=== PATIENT | female | born 1985 | race Caucasian/White ===

== ENCOUNTER 2020-02-12 05:52 | Emergency (ER) | payer MEDICAID, SELFPAY ==
[2020-02-12 05:53] VITALS: BP 142/89; PULSE 89; RESP 16; TEMP 36.1; O2SAT 97; BMI 28.2
[2020-02-12 06:15] LABS: Absolute Lymphocyte Count 0.94 X10^3/uL (0.83-4.51); Absolute Neutrophil Count 6.6 X10^3/uL (2.0-7.7); Basophil# 0.02 X10^3/uL; Basophil% 0.2 % (0-1); Eosinophil# 0.08 X10^3/uL; Hematocrit 42.1 % (37-47); Lymphocyte # 0.94 X10^3/ul (4.0); Lymphocyte % 11.3 % (19-41); Mean Corp Hgb Conc 33.3 g/dL (32-36); Mean Corpuscular Hgb 32.2 pg (27.0-32.0); Mean Corpuscular Volume 96.8 fL (81-99); Mean Platelet Vol. 9.3 fl (6.2-12.0); Monocyte# 0.71 X10^3/uL; Monocyte% 8.5 % (0-10); NRBC Flagged by Analyzer 0 % (0-5); Neutrophil # 6.55 X10^3/uL (2.7-7.7); Neutrophil % 78.6 % (47-70); Platelet Count 220 K/mm3 (150-450); RBC Distribution Width CV 12.2 % (11.6-14.6); RBC Distribution Width SD 43.8 fl (35.1-43.9); Red Blood Count 4.35 M/mm3 (4.2-5.4); White Blood Count 8.3 K/mm3 (4.4-11.0)
[2020-02-12] MEDS: Morphine 4 MG/ML Syringe IV (06:17)
[2020-02-12] MEDS: 0.9% Normal Saline 1,000 ML 1000 ML IV (06:17)
--- NOTE | 2020-02-12 06:22 | ED.VIS.GEN ---
History of Present Illness Chief Complaint: Abd Pain Informant: Patient Onset: Days - 2 Narrative: Patient presents with persistent upper abdominal pain for the past 2 days after awakening. Denies nausea or vomiting. States had a bowel movement was normal 2 days ago prior to symptoms starting. No urinary symptoms. History of IUD. No abdominal surgeries. Patient was seen at [facility] in ED yesterday morning with a work-up. She states she had gallbladder ultrasound and CT scan of abdomen that were negative. She is sent home on Prilosec. She states she is given GI cocktail and Toradol with no relief. She states yesterday a little bit of food did mildly worsen symptoms. She states she called her PCP yesterday's told likely ulcer. She denies any melena. Was able to review patient's records along with her bring paperwork with image studies. Gallbladder ultrasound was normal CT scan abdomen pelvis IV contrast normal appendix, there is noted mild right ovarian cyst. Patient denies any pain in the lower abdomen. Patient returns for evaluation states she is concerned of pancreatitis due to looking up her symptoms. She admits to drinking alcohol on the weekends and sometimes an extra day of the week. She did have a normal lipase. Prior similar symptoms: No Past Medical History - Allergies and Home Meds Allergies/Adverse Reactions: Allergies oxycodone HCl [From Percocet] Allergy (Verified 02/12/20 05:56) Anaphylaxis Primary Care Physician: Alcides Aldrich DO [Primary Care Provider] - Past Medical History: None Smoking Status: Never smoker Review of Systems General: Denies: Chills, Fever, Sweats Eyes: Denies: Visual changes - bilaterally, Diplopia ENT: Denies: Rhinorrhea, Sore throat Cardiovascular: Denies: Chest pain, Palpitations Respiratory: Denies: Dyspnea, Cough, Dyspnea on exertion Gastrointestinal: Reports: Abdominal pain. Denies: Nausea, Vomiting, Diarrhea, Melena, Hematochezia Genitourinary: Denies: Dysuria, Hematuria, Frequency Musculoskeletal: Denies: Back pain, Extremity Pain Skin: Denies: Rash, Wounds Neurological: Denies: Headache, Weakness, Numbness Physical Exam Vital Signs/Narrative: Vital Signs Temp Pulse Resp BP Pulse Ox 02/12/20 05:53 97 F L 89 16 142/89 H 97 Inital Vital Signs reviewed: Yes General: Well nourished, Well developed, No Acute Distress Head: Normocephalic, Atraumatic Eyes: Perrl, EOMI ENT: Moist mucous membranes, No rhinorrhea Neck: Supple, Nontender Cardiovascular: Regular rate, Regular rhythm, No murmurs Respiratory: No distress, CTA bilaterally, Chest nontender Abdomen: Soft, Nondistended, Normal bowel sounds, Tender, - - Tender in epigastric region. Negative McBurney's tenderness. No pelvic tenderness. No rebound or guarding.. Negative for: Munson's sign Back: Nontender, Normal Inspection Extremities: Nontender, No edema Skin: Normal color, No rash Neurological: Alert, Oriented x3, Cranial nerves II-XII grossly intact, Normal Strength, Normal Sensation Psychological: Normal affect, Normal Mood Diagnostic/Tx/Re-eval Abnormal Lab Results 02/12/20 02/12/20 02/12/20 06:02 06:02 06:02 WBC 8.3 RBC 4.35 Hgb 14.0 Hct 42.1 MCV 96.8 MCH 32.2 H MCHC 33.3 RDW Std Deviation 43.8 RDW Coeff of Shadia 12.2 Plt Count 220 MPV 9.3 Immature Gran % (Auto) 0.400 Neut % (Auto) 78.6 H Lymph % (Auto) 11.3 L Antelope % (Auto) 8.5 Eos % (Auto) 1.0 Baso % (Auto) 0.2 Absolute Neuts (auto) 6.6 Absolute Lymphs (auto) 0.94 Nucleated RBC % 0 Sodium 138 Potassium 3.8 Chloride 106 Carbon Dioxide 27.0 Anion Gap 5 BUN 9 Creatinine 0.74 Estim Creat Clear Calc 110.89 Est GFR (MDRD) Af Amer 115 Est GFR (MDRD) Non-Af 95 BUN/Creatinine Ratio 12.2 Glucose 112 H Calcium 8.6 Total Bilirubin 0.90 AST 14 L ALT 18 Alkaline Phosphatase 90 Total Protein 7.6 Albumin 3.5 Globulin 4.1 Albumin/Globulin Ratio 0.9 Lipase 93 Serum , Qual NEGATIVE - Medical Decision Making Patient tender epigastric region. She reported that the GI cocktail did not help at the other facility. She given 1 dose of morphine. Abdominal labs obtained which was normal. She has had a CT scan with IV contrast along with gallbladder ultrasound less than 24 hours ago. Results reviewed and showed no acute process causing patient's symptoms. Currently on Protonix and Prilosec per patient. Her lipase was normal. She will be placed on additional Carafate to try to help with symptoms and close follow-up with her PCP. Do not feel additional images are necessary at this time. Patient may need referral as an outpatient. All questions were answered. ED Disposition - Plan for ED Patient: Disposition: Home or Assisted Living Diagnosis: Gastritis Instructions: ED PEPTIC ULCER vs GASTRITIS Prescriptions: Sucralfate [Carafate] 1 gm PO 4X/DAY #60 tablet traMADol [Ultram] 50 mg PO Q4H PRN PRN 3 Days #10 tablet PRN Reason: Pain Transmission Status: Sent to [facility] Referrals: Alcides Aldrich DO [Primary Care Provider] - 2 Days
[2020-02-12 06:34] LABS: ALB/GLOB Ratio 0.9 RATIO (0.9-2.4); AST(SGOT) 14 U/L (15-37); Alanine Aminotransfer ALT/SGPT 18 U/L (13-56); Albumin, Serum 3.5 g/dL (3.2-5.0); Alkaline Phosphatase 90 U/L (45-117); Anion Gap 5 (5-15); BUN 9 mg/dL (7-18); BUN/Creat Ratio 12.2 RATIO (10-20); Calcium,Total 8.6 mg/dL (8.5-10.1); Chloride 106 mmol/L (98-107); Creatinine, Serum 0.74 mg/dL (0.55-1.02); EST Glomerular Filtration Rate 95 mL/min (>60); Est Glom Filt Rate - Afr Amer 115 mL/min (>60); Estimated Creatinine Clearance 110.89 ml/min; Globulin 4.1 g/dL (2.2-4.2); Glucose 112 mg/dL (74-106); Lipase 93 U/L (73-393); Potassium 3.8 mmol/L (3.5-5.1); Protein, Total 7.6 g/dL (6.4-8.2); Sodium Level 138 mmol/L (136-145)
[2020-02-12 06:37] LABS: Internal QC Validated? YES +Cl - CLEAR BKGD; Pregnancy, Serum, hCG Quali. NEGATIVE Negative
== END 2020-02-12 07:21 | disposition home or self-care (01) ==
PROVIDERS: Emergency Provider Emergency Medicine; PCP Student in an Organized Health Care Education/Training Program
DX: K29.70 Gastritis, unspecified, without bleeding (principal); N83.201 Unspecified ovarian cyst, right side; Z97.5 Presence of (intrauterine) contraceptive device; Z79.899 Other long term (current) drug therapy
CPT/HCPCS: 80053; 83690; 84703; 85025; 96361; 96374; 99283; J7030; A4216